=== PATIENT | female | born 1995 | race Caucasian/White ===

== ENCOUNTER 2021-11-05 19:44 | Observation (INO) | payer OTHER, SELFPAY ==
--- NOTE | ~2021-11-05 | US_ITS ---
EXAMINATION: US venous doppler [facility] DATE: 11/06/2021 07:49 INDICATION: Left lower limb pain. TECHNIQUE: Grayscale ultrasound images without and with compression and Doppler ultrasound images of the bilateral lower extremity veins were obtained. COMPARISON: None. FINDINGS: The visualized portions of right common femoral vein, profunda (deep) femoral vein, femoral vein, pop liteal vein, peroneal veins, posterior tibial veins, and greater saphenous vein outflow are patent. The visualized portions of left common femoral vein, profunda femoral vein, femoral vein, popliteal v ein, peroneal veins, posterior tibial veins, and greater saphenous vein outflow are patent. IMPRESSION: 1. No deep venous thrombosis. Reviewed, dictated and finalized at location A. O WORKER
[2021-11-05 19:56] VITALS: BMI 37.5
--- NOTE | 2021-11-05 19:58 | OBADM ---
This patient, Becki Mari, admitted to the OB room OB Post 113 for observation. Patient/family oriented to hospital policies and general routines including ID bracelet, bed and alarms, visiting hours, pain management, procedures, bathroom and other care routines, personal items, smoking policy, room service/diet, and visiting hours. Patient/Family are encouraged to report perceived risks to care and to ask questions if they do not understand what they are told or what they should do.
[2021-11-05 20:00] VITALS: BP 119/75; PULSE 101
--- NOTE | 2021-11-05 20:15 | PC.NURSE ---
Dr. Medina called and updated on pt. Left calf tenderness, no redness, slight swelling in calfs bilaterally, left pedal pulse slightly weaker on left side. Orders received for bilateral lower venous Doppler.
--- NOTE | 2021-11-05 20:44 | PC.NURSE ---
Dr. Medina called and updated about Doppler not able to be done till morning. Orders for pt to stay overnight and get Doppler first thing in the morning. NST q shift.
[2021-11-05 20:50] VITALS: TEMP 36.9
[2021-11-06 07:52] VITALS: TEMP 36.6
[2021-11-06 07:53] VITALS: BP 124/84; PULSE 104
--- NOTE | 2021-11-06 08:45 | PC.NURSE ---
Called Dr. Medina with pt status and ultrasound report. Orders received.
[2021-11-06] MEDS: CYCLOBENZAPRINE HCL 5 MG TABLET PO (09:10)
--- NOTE | 2021-11-09 13:28 | PM.OBTRLD ---
OB - Triage/Final Diagnosis Visit Information Date of evaluation: 11/06/21 Reason for evaluation: other (rule out DVT) Comments/Additional reasons for admission: I have assessed the risk for this patient, Becki Mari, and determined that she would benefit from observation care.
== END 2021-11-06 10:00 | disposition home or self-care (01) ==
PROVIDERS: Admitting Provider Student in an Organized Health Care Education/Training Program; Visit Provider Student in an Organized Health Care Education/Training Program
DX: O26.899 Other specified pregnancy related conditions, unspecified trimester (principal); M79.662 Pain in left lower leg; R60.0 Localized edema; Z3A.00 Weeks of gestation of pregnancy not specified
CPT/HCPCS: 59025; 93970; A9270; G0378; G0379

== ENCOUNTER 2021-11-24 11:22 | Outpatient (RCR) | payer OTHER, SELFPAY ==
[2021-11-24 11:57] VITALS: BP 123/79; PULSE 108
== END 2022-01-03 08:16 | disposition home or self-care (01) ==
LOC: ANHOBOP 11:22
PROVIDERS: PCP Internal Medicine; Visit Provider Student in an Organized Health Care Education/Training Program
DX: O36.8130 Decreased fetal movements, third trimester, not applicable or unspecified (principal); O26.893 Other specified pregnancy related conditions, third trimester; R03.0 Elevated blood-pressure reading, without diagnosis of hypertension; Z3A.39 39 weeks gestation of pregnancy
CPT/HCPCS: 59025

== ENCOUNTER 2021-12-01 13:13 | Inpatient (IN) | payer OTHER, SELFPAY ==
[2021-12-01] VITALS (93 sets, daily range): BP systolic 109–155; BP diastolic 69–108; PULSE 74–143; RESP 16–20; TEMP 36.5–36.8; O2SAT 95–99; BMI 38.3
--- NOTE | 2021-12-01 13:47 | WPDANESEPP ---
Anes - Eval Pre Procedure Procedure: labor epidural Date/Time: 12/01/21 13:47 Pre Op Diagnosis: Induction of Labor Patient Data Age: 26 Gender: F Height: Weight: Allergies Allergy/AdvReac Type Severity Reaction Status Date / Time latex Allergy Rash Verified 11/02/21 16:07 [id number] Antimigraine Allergy Dyspnea / Verified 11/02/21 15:51 Agents SOB Home Medications Medication Instructions Recorded Confirmed Type omeprazole 20 mg PO DAILY PRN 11/24/21 11/24/21 History Patient hx anesthesia problems: none Family hx anesthesia problems: none Results Review: All pre-operative results and documents have been reviewed as part of the pre-operative evaluation. [facility] Family History Family History Father Diabetes mellitus Hypertension Grandparent Diabetes mellitus Hypertension Colon cancer Social History Social History Substance use: former Last use: last time in February 2021 Spiritual care concerns: No Exam Day of Procedure 12/01/21 13:47 Patient weight: obese Heart: regular rate and rhythm Lungs: normal air movement Airway: Mallampati scale class II Neurological: alert and oriented
[2021-12-01] MEDS: DINOPROSTONE 10 MG VAG INSERT VAGINAL (14:14)
[2021-12-01 14:34] LABS: Basophils Percent Auto 0.2 % (0.2-1.2); Eosinophils Percent Auto 0.1 % (0-4.4); Hematocrit 36.3 % (37.0-47.0); Immature Granulocyte Absolute 0.05 K/mm3 (0.00-0.031); Immature Granulocyte Percent A 0.5 % (0-0.5); Lymphocytes Absolute Auto 2.22 K/mm3 (0.9-3.2); Lymphocytes Percent Auto 21.2 % (18.3-44.2); Mean Corpuscular HGB Conc 33.1 g/dl (32-36); Mean Corpuscular Hemoglobin 28.2 pg (26-34); Mean Corpuscular Volume 85.4 fl (80-100); Mean Platelet Volume 12.2 fl (7.4-10.4); Monocytes Absolute Auto 0.6 K/mm3 (0.1-0.6); Neutrophils Absolute Auto 7.6 K/mm3 (1.3-6.7); Platelet Count Result 180 k/mm3 (150-375); Red Blood Count 4.25 M/mm3 (4.2-5.4); Red Cell Distribution Width 13.1 % (11.5-14.5); White Blood Count 10.5 K/mm3 (4.5-10.0)
[2021-12-01 15:15] LABS: Amphetamine Screen Urine Negative (Negative); Barbiturate Screen Urine Negative (Negative); Benzodiazepines Screen Urine Negative (Negative); Cannabinoid Screen Urine Negative (Negative); Cocaine Screen Urine Negative (Negative); Methadone Screen Urine Negative (Negative); Opiate Screen Urine Negative (Negative); Phencyclidine Screen Urine Negative (Negative)
[2021-12-01] MEDS: fentaNYL CITRATE INJ (*CRX) 100 MCG/2 ML VIAL IV PUSH (19:23)
[2021-12-01] MEDS: LACTATED RINGERS 1,000 ML 125 ML IV CONT (20:28)
[2021-12-02] VITALS (133 sets, daily range): BP systolic 108–150; BP diastolic 59–104; PULSE 81–144; RESP 16–18; TEMP 35.9–37.1; O2SAT 93–100
[2021-12-02] MEDS: OXYTOCIN 30 UNITS/NS 500 ML 30 UNITS/500 ML BAG IV CONT (03:40)
[2021-12-02] MEDS: ACETAMINOPHEN 500 MG TABLET 1000 MG PO (03:51)
[2021-12-02 06:54] LABS: Rapid Plasma Reagin Non-Reactive (NonReactive)
--- NOTE | 2021-12-02 07:10 | PM.IMHP ---
H&P: HPI History of Present Illness Date/Time: 12/02/21 07:10 Chief Complaint: Intrauterine at term Narrative: 26 yo at 40w0d who presents for elective IOL. Patients has been complicated by hypothyroidism on levothyroxine, bipolar/anxiety stable on no meds, migraines and obeesity. Review of Systems Cardiovascular: Cardiovascular: Denies chest pain, Denies leg edema, Denies palpitations, Denies dyspnea and Denies dyspnea on exertion Respiratory: Respiratory: Denies cough, Denies dyspnea and Denies dyspnea on exertion Gastrointestinal: Gastrointestinal: Denies abdominal pain, Denies constipation, Denies diarrhea, Denies nausea and Denies vomiting Genitourinary: Genitourinary: Denies hematuria, Denies urinary frequency, Denies dysuria, Denies pelvic pain, Denies urinary incontinence and Denies vaginal discharge Neurologic: Reports system reviewed and no additional complaints, except as documented Psychiatric: Psychiatric: Reports no additional psychiatric complaints Endocrine: Endocrine: Denies palpitations PMFSH Family History Family History Father Diabetes mellitus Hypertension Grandparent Diabetes mellitus Hypertension Colon cancer Social History Social History Smoking status: Never smoker Second hand tobacco smoke exposure: No Substance use: former Last use: last time in February 2021 Spiritual care concerns: No Meds Home Medications and Allergies Home Medications Medication Instructions Recorded Confirmed Type wqhdseemic-czdfctiknchai-mbdo 1 tablet PO 2XW PRN 12/01/21 12/01/21 History Allergies Allergy/AdvReac Type Severity Reaction Status Date / Time latex Allergy Rash Verified 11/02/21 16:07 [id number] Antimigraine Allergy Dyspnea / Verified 11/02/21 15:51 Agents SOB Vital Signs Vital Signs - 24 hr 12/01/21 13:56 12/01/21 14:00 12/01/21 15:00 Temperature Pulse Rate 99 106 H 105 H Respiratory Rate Blood Pressure 139/93 H 139/91 H 125/85 Pulse Oximetry 12/01/21 16:00 12/01/21 16:01 12/01/21 19:08 Temperature 36.5 C Pulse Rate 93 81 Respiratory Rate Blood Pressure 109/72 146/92 H Pulse Oximetry 12/01/21 19:26 12/01/21 19:31 12/01/21 19:37 Temperature 36.7 C Pulse Rate 93 110 H Respiratory Rate 16 Blood Pressure 150/101 H 136/89 Pulse Oximetry 12/01/21 19:46 12/01/21 20:01 12/01/21 20:16 Temperature Pulse Rate 99 82 80 Respiratory Rate Blood Pressure 130/87 132/92 H 127/90 Pulse Oximetry 12/01/21 20:22 12/01/21 20:31 12/01/21 21:01 Temperature 36.8 C Pulse Rate 92 94 Respiratory Rate 20 Blood Pressure 128/88 133/69 Pulse Oximetry 12/01/21 21:04 12/01/21 21:16 12/01/21 21:20 Temperature 36.8 C Pulse Rate 126 H 113 H Respiratory Rate 18 Blood Pressure 143/108 H 155/96 H Pulse Oximetry 98 12/01/21 21:21 12/01/21 21:22 12/01/21 21:25 Temperature Pulse Rate 106 H 121 H Respiratory Rate Blood Pressure 150/95 H 138/87 Pulse Oximetry 98 12/01/21 21:26 12/01/21 21:28 12/01/21 21:30 Temperature Pulse Rate 143 H 121 H Respiratory Rate Blood Pressure 134/71 131/98 H Pulse Oximetry 99 12/01/21 21:31 12/01/21 21:34 12/01/21 21:36 Temperature Pulse Rate 108 H Respiratory Rate Blood Pressure 134/84 Pulse Oximetry 99 98 12/01/21 21:37 12/01/21 21:40 12/01/21 21:41 Temperature Pulse Rate 104 H 99 Respiratory Rate Blood Pressure 127/84 133/82 Pulse Oximetry 98 12/01/21 21:43 12/01/21 21:45 12/01/21 21:46 Temperature Pulse Rate 104 H 112 H Respiratory Rate Blood Pressure 127/84 136/86 Pulse Oximetry 99 12/01/21 21:49 12/01/21 21:51 12/01/21 21:52 Temperature Pulse Rate 103 H 101 H Respiratory Rate Blood Pressure 142/80 H 133/86 Pulse Oximetry 98
--- NOTE | 2021-12-02 07:54 | PM.OBPRVD ---
OB - Delivery Note Procedure Procedure: Patient pushed for a spontaneous vaginal delivery. The fetus was delivered atraumatically and placed on the maternal abdomen. The cord was clamped and cut after 1 minute of life. The cord was double clamped and cut and a segment of cord was collected for cord gases. Cord blood was collected for blood type and Coomb's testing. The placenta delivered spontaneously and was noted to be intact. The perineum was inspected and there was a 1st degree perineal laceration. The laceration was repaired with 3-0 vicryl in the usual fashion. The uterus was firm and good hemostasis was noted. The patient and fetus were stable in the delivery room. Induction method: Per Cervidil Protocol Delivery monitor: External FHT Route of delivery: Episiotomy description: None Laceration Description: Perineal - 1st Degree Delivery repair: vicryl Specimen: No Quantitative Blood Loss (ml): 400 Anesthesia type: Epidural Disposition: Floor () Complications: No immediate complications Baby Date of : 12/02/21 Time of : 07:43 Weeks of gestation at delivery: 40 gender: Female Weight (pounds): 6 Weight (ounces): 13 presentation: vertex position: Right Occiput Anterior Placenta delivery description: Spontaneous Cord Vessel Description: 3 Vessels score one minute: 9 score five minutes: 9
[2021-12-02] MEDS: OXYTOCIN 30 UNITS/NS 500 ML 30 UNITS/500 ML BAG 125 UNITS IV CONT (08:12)
[2021-12-02] MEDS: IBUPROFEN 600 MG TABLET PO ×2 (09:30→17:53)
[2021-12-02] MEDS: WITCH HAZEL 40 PADS 1 PAD TOPICAL (09:31)
[2021-12-02] MEDS: BENZOCAINE 20% AER SPR (*SP) 56 GM CAN 1 SPRAY TOPICAL (09:32)
--- NOTE | 2021-12-02 10:15 | PC.NURSE ---
Patient transferred to post room #277 via wheelchair. Support person present. Oriented to unit, room, information board, rooming in, admission packet and security measures. Patient verbalizes understanding.
[2021-12-03] VITALS: BP 117/84; PULSE 94; RESP 18; TEMP 35.9; O2SAT 98
[2021-12-03 04:28] VITALS: BP 125/88; PULSE 87; RESP 18; TEMP 36; O2SAT 99
[2021-12-03 05:31] LABS: Hemoglobin 9.7 g/dL (12.0-15.0)
[2021-12-03 08:00] VITALS: BP 127/83; PULSE 89; RESP 16; TEMP 36.3; O2SAT 97
[2021-12-03] MEDS: MULTIVIT/MIN/PREN/FOL AC/IRON TABLET 1 TAB PO (08:56)
[2021-12-03] MEDS: POLYSACCHARIDE IRON COMPLEX 150 MG CAPSULE PO (08:56)
[2021-12-03] MEDS: DOCUSATE SODIUM 100 MG CAPSULE PO (08:57)
[2021-12-03] MEDS: IBUPROFEN 600 MG TABLET PO (08:57)
[2021-12-03] MEDS: DIBUCAINE 1% OINTMENT 30 GM TUBE 1 APPLIC TOPICAL (09:01)
--- NOTE | 2021-12-03 09:37 | P.DS_ITS ---
DS: Admitting Diagnosis Discharge Date 12/02/2021 Admitting Diagnosis Term DS: Summary Hospital Course Hospital Course: Patient was admitted for induction of labor. Underwent spon taneous vaginal delivery under postop course was unremarkable. She is up, ambulating voiding without difficulty, eating regular diet bottle feeding and generally without complaints Time Spent with Patient Time attestation: Total time spent providing and/or coordinating discharge services: Exam Const: General: no acute distress Eyes: General: appearance normal, both eyes and all related structures Neck: Neck: supple and no JVD Thyroid: thyroid normal Resp: Effort & Inspection: normal respiratory effort Auscultation: clear to auscultation bilaterally Cardio: Rate: regular rate Rhythm: regular rhythm GI: Inspection: non-distended GI Palp: Yes Soft to palpation, No Tenderness to palpation present (GI) and No Guarding due to palpation present (GI) Aus cultation: normal bowel sounds : General: Yes bladder normal to palpation External Female Exam: normal external appearance Speculum Exam - Vagina: normal vaginal discharge and No vaginal bleeding Speculum Exam - Cervix: nontender Bimanual exam- vagina & uterus: bladder normal to palpation and No Cervical tenderness present OB/external & speculum: No vaginal bleeding Skin: General skin exam: no rashes or lesions noted Extrem: General: normal to inspection and no edema Psych: Mental Status: mental status grossly normal Affect: normal affect DS: Data Data Completed and Pending Labs on day of discharge: Labs from last 24 hours 12/03/21 04:04 Hgb 9.7 L Hct 30.0 L Discharge Plan Discharge Attending physician on discharge: Akshat Medina Discharging Clinician: Lorne West Patient Disposition: Home, Self-Care Activity: no straining and pelvic rest Diet: heart healthy Wound Care Instructions: follow printed instructions Patient Instructions: Antibiotic Form Stand Alone Forms: General Discharge Information Follow-up/Referrals: Akshat Medina MD [Physician] - Discharge Medications: Continued lqxiemhoej-fujssblhwnblp-ifiw 50-325-40 mg tablet 1 tablet PO 2XW PRN (Reason: Headache) RF: 0 Date of admission: 12/01/21 13:13 Primary Care Provider: ChayitoInocente Admitting Provider: Akshat Medina Attending physician on admission: Akshat Medina Condition: Stable
--- NOTE | 2021-12-03 09:40 | P.PNOB_ITS ---
OB - PN: Subj Subjective Date/time seen: 12/03/21 09:40 Patient comments: no complaints and pain well controlled baby status: doing well OB - PN: Obj Data Labs CBC & Chem 7: 12/03/21 04:04 Labs: Laboratory Results - last 24 hr 12/03/21 04:04 Hgb 9.7 L Hct 30.0 L OB - PN A/P Plan day: 1 Plan: routine care, discharge home and follow up 6 weeks Time Spent With Patient Time: Total time spent is greater than 50% in coordination of care (as documented) at patient's floor/unit and/or counseling patient: Time with patient: less than 15 minutes Review of Systems Review of Systems: All systems reviewed & are unremarkable except as noted in HPI and below Exam Const: General: no acute distress Eyes: General: appearance normal, both eyes and all related structures Neck: Neck: supple and no JVD Thyroid: thyroid normal Resp: Effort & Inspection: normal respiratory effort Auscultation: clear to auscultation bilaterally Cardio: Rate: regular rate Rhythm: regular rhythm GI: Inspection: non-distended GI Palp: Yes Soft to palpation, No Tenderness to palpation present (GI) and No Guarding due to palpation present (GI) Auscultation: normal bowel sounds : General: Yes bladder normal to palpation External Female Exam: normal external appearance Speculum Exam - Vagina: normal vaginal discharge and No vaginal bleeding Speculum Exam - Cervix: nontender Bimanual exam- vagina & uterus: bladder normal to palpation and No Cervical tenderness present O B/external & speculum: No vaginal bleeding Skin: General skin exam: no rashes or lesions noted Extrem: General: normal to inspection and no edema Psych: Mental Status: mental status grossly normal Affect: normal affect
--- NOTE | 2021-12-03 10:09 | PC.NURSE ---
Patient viewed the discharge video Mother & Baby Care, The First Two Weeks . Patient was given the opportunity and encouraged to ask questions. Patient verbalized understanding of information shared and has been given the mother/baby guide for home reference.
[2021-12-04 07:49] VITALS: BP 132/77; PULSE 100; RESP 20; TEMP 37.4; O2SAT 100
== END 2021-12-03 12:22 | disposition home or self-care (01) | DRG 807 ==
LOC: ANHLDR 12-02 05:52 → ANHOB2 12-03 09:39 → ANHLDR 12-06 10:54 → ANHOB2 12-06 10:54
PROVIDERS: Admitting Provider Student in an Organized Health Care Education/Training Program; PCP Internal Medicine; Visit Provider Obstetrics & Gynecology
DX: O99.284 Endocrine, nutritional and metabolic diseases complicating childbirth (principal); Z37.0 Single live birth; Z3A.40 40 weeks gestation of pregnancy; E03.9 Hypothyroidism, unspecified; O36.8330 Maternal care for abnormalities of the fetal heart rate or rhythm, third trimester, not applicable or unspecified; O70.0 First degree perineal laceration during delivery; O99.214 Obesity complicating childbirth; E66.9 Obesity, unspecified; O99.344 Other mental disorders complicating childbirth; F41.9 Anxiety disorder, unspecified; F31.9 Bipolar disorder, unspecified
CPT/HCPCS: 36415; 80307; 85014; 85018; 85025; 86592; 86850; 86900; 86901; A9270; J2590; J2795; J3010; J7120

== ENCOUNTER 2021-12-10 00:57 | Day surgery (SDC) | payer OTHER, SELFPAY ==
[2021-12-09 11:53] VITALS: BMI 34.2
--- NOTE | 2021-12-09 11:59 | PC.NURSE ---
Report to the Outpatient Waiting Room, entrance under the green pavilion located off [facility], at time 12:30 on date 12/10/21. OR Time: 2:30. - You and your visitor will be asked a series of questions to screen for COVID 19 for your protection. - A mask is required within the hospital. One visitor will be allowed to accompany the patient into the hospital. Patients visitor will be instructed to remain with patient at all times or leave the building. We will allow the visitor to come back to the postoperative area when patient is ready. Preoperative COVID Testing Requirements: No COVID Test needed if: (proof is required; if not received patient will have Rapid Test prior to entry) - Patient has received COVID Vaccine at least 14 days prior to procedure date or - Patient has positive COVID test result within last 90 days of surgery date. COVID Test needed if above criteria is not met Patients may have clear liquids (water, carbonated beverages, clear teas, apple juice) until 3 hours prior to surgery with a maximum of 20 ounces. - No food from midnight until time of surgery Take the following medications with a SIP of water the morning of surgery: NONE Medications to discontinue per physician: N/A Date to take last dose: N/A Please no make-up, nail icelandic, hairspray, perfume, deodorant, or body powder the day of surgery. No jewelry (including any body piercings) or valuables the day of surgery, leave them at home. Please take a shower or bath the night before, or the morning of, surgery with an antibacterial soap. Wear comfortable, loose fitting clothing. - Jewelry must be removed prior to entering the operating room. Rings and piercings that are not removed may be cut off. - The hospital will not accept responsibility for valuables. - Please leave all valuables, including medications, at home the day of surgery. If you are going home after surgery, a licensed local driver must drive you home. - NO public transportation without another adult. - We recommend that an adult stay with you for 24 hours following discharge. - We also recommend that you do not drive, make important decision, drink alcoholic beverages, or take any drugs that were not prescribed by your health care provider for at least 24 hours after your discharge time. Follow any additional instructions given to you from your surgeon. Telephone instructions given to CRISTINO CASTANON and asked if any additional questions and then verbalized understanding. Patient advised to call surgeon office or pre surgery nurse liaison [phone] if any additional questions.
--- NOTE | 2021-12-10 07:14 | WPDHPUPDATE1 ---
History and Physical Update Update Date/Time: 12/10/21 07:14 History and Physical has been reviewed, including an updated exam of the patient. There are NO changes in the patient's condition. Risks, benefits, and alternatives have been discussed and questions answered. Patient agrees to proceed with procedure.
--- NOTE | 2021-12-10 07:15 | WPDHPUPDATE1 ---
History and Physical Update Update Date/Time: 12/10/21 07:15 History and Physical has been reviewed, including an updated exam of the patient. There are NO changes in the patient's condition. Risks, benefits, and alternatives have been discussed and questions answered. Patient agrees to proceed with procedure.
--- NOTE | 2021-12-10 07:15 | PM.IMHP ---
H&P: HPI History of Present Illness Date/Time: 12/10/21 07:15 26-year-old 1 week admitted for suction D&C secondary to retained products of conception she has had heavy bleeding and ultrasound reveals prostate conception present risks and benefits reviewed Chief Complaint: bleeding Review of Systems Review of Systems: All systems reviewed & are unremarkable except as noted in HPI and below PMFSH Family History Family History Father Diabetes mellitus Hypertension Grandparent Diabetes mellitus Hypertension Colon cancer Social History Social History Smoking status: Never smoker Second hand tobacco smoke exposure: No Alcohol intake: never Substance use: never Substance use type: does not use Last use: last time in February 2021 Living arrangements: with family Spiritual care concerns: No Meds Home Medications and Allergies Home Medications Medication Instructions Recorded Confirmed Type uoptzorvyy-kzslvuagkxbfs-hkyz 1 tablet PO 2XW PRN 12/01/21 12/09/21 History Allergies Allergy/AdvReac Type Severity Reaction Status Date / Time latex Allergy Rash Verified 11/02/21 16:07 [id number] Antimigraine Allergy Dyspnea / Verified 11/02/21 15:51 Agents SOB Exam Const: General: no acute distress Eyes: General: appearance normal, both eyes and all related structures Neck: Neck: supple and no JVD Thyroid: thyroid normal Resp: Effort & Inspection: normal respiratory effort Auscultation: clear to auscultation bilaterally Cardio: Rate: regular rate Rhythm: regular rhythm GI: Inspection: non-distended GI Palp: Yes Soft to palpation, No Tenderness to palpation present (GI) and No Guarding due to palpation present (GI) Auscultation: normal bowel sounds : Speculum Exam - Vagina: normal appearance of the vagina Speculum Exam - Cervix: normal appearance of the cervix (Cervix open with blood present) and Cervical os open Bimanual exam- vagina & uterus: enlarged Bimanual Exam- Adnexa, other: No adnexal tenderness Skin: General skin exam: no rashes or lesions noted Extrem: General: normal to inspection and no edema Psych: Mental Status: mental status grossly normal Affect: normal affect Assessment and Plan Additional Plan Impression: bleeding with suspected retained placenta Plan: Suction dilatation and curettage
--- NOTE | 2021-12-10 12:56 | P.PNAN_ITS ---
Anes - Initial Pre Proc Eval Procedure: Operation Date: 12/10/21 14:30 Proposed Procedures p Suction Dilation and Curettage - Lorne Steinberg MD Date/Time: 12/10/21 12:56 Surgeon: Lorne Steinberg MD Pre Op Diagnosis: Retained Placenta Patient Data Age: 26 Gender: F Height: 1.7 m Weight: 99.34 kg Allergies Allergy/AdvReac Type Severity Reaction Status Date / Time latex Allergy Rash Verified 11/02/21 16:07 [id number] Antimigraine Allergy Dyspnea / Verified 11/02/21 15:51 Agents SOB Home Medications Medication Instructions Recorded Confirmed Type fmaouarfgl-kmnpkallpfsmo-jxar 1 tablet PO 2XW PRN 12/01/21 12/09/21 History hydrocodone-acetaminophen 1 tablet PO Q4H PRN #20 tablet 12/10/21 Rx Patient hx anesthesia problems: none Family hx anesthesia problems: none Results Review: All pre-operative results and documents have been reviewed as part of the pre-operative evaluation. [facility] Family History Family History Father Diabetes mellitus Hypertension Grandparent Diabetes mellitus Hypertension Colon cancer Social History Social History Smoking status: Never smoker Second hand tobacco smoke exposure: No Alcohol intake: never Substance use: never Substance use type: does not use Last use: last time in February 2021 Living arrangements: with family Spiritual care concerns: No Anes - Eval Final PreProcedure Day of Procedure 12/10/21 12:56 Patient weight: obese Heart: regular rate and rhythm Lungs: clear to auscultation Airway: Mallampati scale class II Neurological: alert and oriented Last oral intake: >/= 8 hours ASA classification: II Emergent: no Anesthetic plan: proceed Anesthesia type and monitoring: general GIVS and standard monitoring Results Review: All pre-operative results and documents have been reviewed as part of the pre-operative evaluation. Informed Consent: The patient's anesthetic plan and its attendant risks and benefits were discussed with the patient/family/POA. Questions were solicited and answers provided to the satisfaction of the patient/family/POA.
[2021-12-10] MEDS: ACETAMINOPHEN 500 MG TABLET 1000 MG PO (13:30)
[2021-12-10] MEDS: LACTATED RINGERS 1,000 ML 30 ML IV CONT (13:30)
[2021-12-10 13:42] VITALS: BP 121/90; PULSE 79; RESP 14; TEMP 36.3; O2SAT 98; BMI 34.1
[2021-12-10] MEDS: KETOROLAC 30 MG/ML VIAL (*BKC) IV PUSH (14:08)
--- NOTE | 2021-12-10 14:20 | W.PM.PROC2 ---
Procedure Note - Detailed Date of Procedure 12/10/21 Pre-op Diagnosis Retained Placenta Post-op Diagnosis Same Procedure Performed Suction dilatation curettage Surgeon Lorne Steinberg MD Anesthesia MAC and Local Indications This is a 26-year-old week out from delivery with suspected products of conception retained in the placenta following a vaginal delivery Findings Uterus sounded to 12cm. Tissue consistent with retained placenta Description of Procedure Patient was prepped draped in the normal sterile fashion placed in the dorsal lithotomy position. Under excellent IV sedation weighted speculum placed in posterior fornix vagina. Anterior lip of the cervix grasped with a single-tooth tenaculum and the uterus sounded to 12cm. 2.5cc 1% xylocaine anesthesia placed at 2, 4, 8, 10:00 a.m. respectively cervix. Serial dilatation with fragmented dilators performed followed by passage of the 10. Suction curette removing a moderate amount of what appeared to be retained placenta. Once a good grating sound was heard the instruments removed. Blood loss was estimated at25cc. All sponge, needle, instrument counts were correct. There were no immediate complications noted Estimated Blood Loss 25 Drains No Packing No Complications No immediate complications Condition Stable Disposition PACU
[2021-12-10 14:22] VITALS: BP 107/65; PULSE 78; RESP 12; O2SAT 95
[2021-12-10 14:50] VITALS: BP 99/67; PULSE 77; RESP 12; O2SAT 94
[2021-12-10 15:10] VITALS: BP 111/73; PULSE 53; RESP 12
== END 2021-12-10 15:19 | disposition home or self-care (01) ==
PROVIDERS: PCP Internal Medicine; Visit Provider Obstetrics & Gynecology
PROC: (CPT 59160; principal; 2021-12-10 14:30)
DX: O72.0 Third-stage hemorrhage (principal)
CPT/HCPCS: 59160; 88305; A9270; J1100; J1885; J2250; J2405; J2704; J3010; J7120

== ENCOUNTER 2022-04-19 07:16 | Emergency (ER) | payer OTHER, SELFPAY ==
[2022-04-19] VITALS (14 sets, daily range): BP systolic 109–128; BP diastolic 70–82; PULSE 58–73; RESP 16–18; TEMP 37.2; O2SAT 95–100
--- NOTE | 2022-04-19 07:44 | ED.NAVMDI ---
HPI - Nausea/Vomiting/Diarrhea General Chief complaint: Nausea/Vomiting/Diarrhea Stated complaint: n/v Time Seen by Provider: 04/19/22 07:22 History of Present Illness HPI Narrative: This is a 27-year-old female with past medical history of anxiety, recent miscarriage status post D&C 10 days ago, who presents emergency department with nausea vomiting and diarrhea beginning approximately 4 hours ago. She states she has had multiple episodes of vomiting of bile, without blood, with loose stools, headache and some upper respiratory congestion. She denies significant pain. She denies known sick contacts and is vaccinated for coronavirus but not flu. Related Data Home Medications Medication Instructions Recorded Confirmed [id number] 1 tablet PO 2XW PRN Migraine 12/01/21 12/09/21 50 mg-325 mg-40 mg tablet Headache Allergies Allergy/AdvReac Type Severity Reaction Status Date / Time latex Allergy Rash Verified 04/19/22 07:24 [id number] Antimigraine Allergy Dyspnea / Verified 04/19/22 07:24 Agents SOB PMFSH Family History Family History Father Diabetes mellitus Hypertension Grandparent Diabetes mellitus Hypertension Colon cancer Social History Social History Smoking status: Never smoker Second hand tobacco smoke exposure: No Alcohol intake: never Substance use: never Substance use type: does not use Last use: last time in February 2021 Spiritual care concerns: No Course Course Emergency Course: After IV fluids, antiemetics and pain control, the patient's symptoms improved. Chemistries and CBC were unremarkable. UA not concerning for UTI. Urine test positive, though this is not surprising given the patient's recent D&C. Patient tolerated p.o. challenge, and is comfortable with discharge. Discussed return emergency precautions including signs/symptoms of bowel obstruction, and acute abdomen. Patient voiced understanding and is comfortable with the plan. All questions answered to her satisfaction. Vital Signs Vital signs: Vital Signs Temperature 98.9 F 04/19/22 07:21 Pulse Rate 73 04/19/22 07:21 Respiratory Rate 16 04/19/22 07:21 Blood Pressure 128/75 04/19/22 07:21 Pulse Oximetry 98 04/19/22 07:21 Oxygen Delivery Room Air 04/19/22 07:21 Temperature 98.9 F 04/19/22 07:21 Pulse Rate 58 L 04/19/22 08:02 Respiratory Rate 18 04/19/22 08:02 Blood Pressure 120/80 04/19/22 09:16 Pulse Oximetry 98 04/19/22 09:16 Oxygen Delivery Room Air 04/19/22 07:21 MDM - Nausea/Vomiting/Diarrhea Lab Data Result diagrams: 04/19/22 07:43 04/19/22 07:43 Labs: Lab Results 04/19/22 04/19/22 04/19/22 Range/Units 07:36 07:43 07:43 WBC 8.3 (4.5-10.0) K/mm3 RBC 4.72 (4.2-5.4) M/mm3 Hgb 12.3 (12.0-15.0) g/dL Hct 38.9 (37.0-47.0) % MCV 82.4 (80-100) fl MCH 26.1 (26-34) pg MCHC 31.6 L (32-36) g/dl RDW 17.1 H (11.5-14.5) % Plt Count 272 D (150-375) k/mm3 MPV 10.2 (7.4-10.4) fl Immature Gran % (Auto) 0.2 (0-0.5) % Neut % (Auto) 73.1 (45.5-73.1) % Lymph % (Auto) 20.8 (18.3-44.2) % [place] % (Auto) 4.3 (2.6-8.5) % Eos % (Auto) 1.4 (0-4.4) % Baso % (Auto) 0.2 (0.2-1.2) % Lymph # (Auto) 1.72 (0.9-3.2) K/mm3 [place]t # (Auto) 0.4 (0.1-0.6) K/mm3 Eos # (Auto) 0.1 (0-0.3) K/mm3 Baso # (Auto) 0.0 (0.0-0.1) K/mm3 Abs Immat Gran (auto) 0.02 (0.00-0.031) K/mm3 Absolute Neuts (auto) 6.0 (1.3-6.7) K/mm3 Absolute Nucleated RBC 0.0 (0.0-0.012) K/mm3 Nucleated RBC % 0.0 (0.0-0.2) % Sodium 140 (137-145) mmol/L Potassium 4.1 (3.4-5.0) mmol/L Chloride 104 (98-107) mmol/L Carbon Dioxide 25 (22-30) mmol/L Anion Gap 11 (8-16) mmol/L BUN 7 (7-17) mg/dL Creatinine 0.80
[2022-04-19 07:46] LABS: Appearance Urine Clear (Clear); Bilirubin Urine Negative (Negative); Blood Urine 1+ (Negative); Color Urine Yellow (Yellow); Glucose Urine UA Negative (Negative); Ketones Urine Negative (Negative); Leukocyte Esterase Ur Negative LEU/UL (Negative); Nitrate Urine Negative (Negative); Protein Urine Negative (Negative)
[2022-04-19 07:50] LABS: Bacteria Urine Trace /hpf; Mucus Urine Rare /lpf; RBC Urine 0-2 /hpf (0-2); Squamous Epithelial Cell Urine Many /hpf (Few); WBC Urine 0-3 /hpf
[2022-04-19 07:51] LABS: Basophils Percent Auto 0.2 % (0.2-1.2); Eosinophils Absolute Auto 0.1 K/mm3 (0-0.3); Eosinophils Percent Auto 1.4 % (0-4.4); Hematocrit 38.9 % (37.0-47.0); Hemoglobin 12.3 g/dL (12.0-15.0); Immature Granulocyte Absolute 0.02 K/mm3 (0.00-0.031); Immature Granulocyte Percent A 0.2 % (0-0.5); Lymphocytes Absolute Auto 1.72 K/mm3 (0.9-3.2); Lymphocytes Percent Auto 20.8 % (18.3-44.2); Mean Corpuscular HGB Conc 31.6 g/dl (32-36); Mean Corpuscular Hemoglobin 26.1 pg (26-34); Mean Corpuscular Volume 82.4 fl (80-100); Mean Platelet Volume 10.2 fl (7.4-10.4); Monocytes Absolute Auto 0.4 K/mm3 (0.1-0.6); Monocytes Percent Auto 4.3 % (2.6-8.5); Neutrophils Percent Auto 73.1 % (45.5-73.1); Platelet Count Result 272 k/mm3 (150-375); Red Blood Count 4.72 M/mm3 (4.2-5.4); Red Cell Distribution Width 17.1 % (11.5-14.5); White Blood Count 8.3 K/mm3 (4.5-10.0)
[2022-04-19] MEDS: diphenhydrAMINE HCl INJ 50 MG/ML VIAL 25 MG IV PUSH (07:57)
[2022-04-19 08:01] LABS: Add Urine Microscopic? YES
[2022-04-19] MEDS: SODIUM CHLORIDE 0.9% IV 1,000 ML 999 ML IV CONT (08:01)
[2022-04-19] MEDS: PROCHLORPERAZINE EDISYLATE 10 MG/2 ML VIAL IV PUSH (08:04)
[2022-04-19 08:11] LABS: Alanine Aminotransferase 19 U/L (6-35); Albumin Level 4.8 g/dL (3.5-5.1); Alkaline Phosphatase 93 U/L (38-126); Anion Gap 11 mmol/L (8-16); Aspartate Amino Transferase 24 U/L (14-36); Bilirubin,Total 0.7 mg/dL (0.2-1.3); Blood Urea Nitrogen 7 mg/dL (7-17); Calcium 8.5 mg/dL (8.4-10.2); Carbon Dioxide 25 mmol/L (22-30); Chloride 104 mmol/L (98-107); Estimated CRCL calculation 113 ml/min; Estimated Glomerular Filt Rate > 60; Glucose 117 mg/dL (65-110); Lipase 50 U/L (23-300); Potassium 4.1 mmol/L (3.4-5.0); Sodium 140 mmol/L (137-145)
[2022-04-19 08:26] LABS: EDCOVIDSCREEN Negative (Negative)
[2022-04-19 08:48] LABS: Influenza A QL RT-PCR Negative (Negative); Influenza B QL RT-PCR Negative (Negative)
== END 2022-04-19 10:58 | disposition home or self-care (01) ==
PROVIDERS: Emergency Provider Preventive Medicine Aerospace Medicine; PCP Internal Medicine
DX: R11.2 Nausea with vomiting, unspecified (principal); G43.909 Migraine, unspecified, not intractable, without status migrainosus; Z20.822 Contact with and (suspected) exposure to COVID-19
CPT/HCPCS: 36415; 80053; 81001; 81025; 83690; 85025; 87426; 87502; 87804; 96361; 96365; 96375; 99284; C9803; J0131; J0780; J1200; J7030

== ENCOUNTER 2024-07-15 14:47 | Outpatient (CLI) | payer OTHER, SELFPAY ==
--- NOTE | ~2024-07-15 | MR_ITS ---
EXAMINATION: MR brain/brain stem wo con DATE: 07/15/2024 15:35 INDICATION: Headache TECHNIQUE: Magnetic resonance imaging (MRI) of the brain and brainstem was performed without intraven ous contrast. Sequences included sagittal and axial T1-weighted SE, axial diffusion-weighted FS SE, a xial T2*-weighted GRE, axial T2-weighted FLAIR, and axial T2-weighted FSE. Apparent diffusion coeffic ient (ADC) maps were created. COMPARISON: None. FINDINGS: There are no areas of restricted diffusion to suggest acute infarction. No intracranial hemorrhage or abnormal intracranial mass lesion. There are no intraparenchymal signal abnormalities seen on the ot her pulse sequences. The ventricles are symmetric and normal in size. There are no abnormal extra-axi al fluid collections. Flow voids are seen in the cerebral arteries on the T2-weighted sequences consi stent with their expected patency. Visualized orbits and soft tissues are unremarkable. IMPRESSION: 1. Normal noncontrast brain MRI. Reviewed, dictated and finalized at location B. [employer]
--- NOTE | ~2024-07-15 | MR_ITS ---
EXAMINATION: MRA brain wo con DATE: 07/15/2024 15:34 INDICATION: Headache TECHNIQUE: Magnetic resonance angiography (MRA) of the brain was performed without intravenous contrast by the 3 D [id number] technique. COMPARISON: None. FINDINGS: There is normal flow related signal seen within the vertebral, basilar and internal carotid arteries. There is no proximal stenosis. There are no aneurysms identified. Both A1 and P1 segments are pat ent. The right P1 segment is diminutive with majority of flow to the right posterior cerebral artery supplied via a larger caliber patent right posterior communicating artery. Is also a patent anterior communicating artery. Flow in the cerebral arteries is symmetric. IMPRESSION: 1. Unremarkable cerebral MR angiogram with no evident aneurysm, thrombosis or hemodynamically signifi cant stenosis. Reviewed, dictated and finalized at location B. [employer] IMPRESSION: 1. Unremarkable cerebral MR angiogram with no evident aneurysm, thrombosis or h emodynamically significant stenosis.
== END 2024-07-15 14:48 | disposition home or self-care (01) ==
PROVIDERS: PCP Internal Medicine; Visit Provider Internal Medicine Rheumatology
DX: R51.9 Headache, unspecified (principal)
CPT/HCPCS: 70544; 70551